=== PATIENT | female | born 1970 ===

== ENCOUNTER 2018-05-25 17:46 | Emergency (ER) | payer MEDICAID ==
[2018-05-25 17:54] VITALS: BP 148/84; PULSE 92; RESP 18; TEMP 98.7; O2SAT 100
--- NOTE | 2018-05-25 18:10 | ED PDOC ---
Lower Extremity Pain/Injury Time Seen by Provider: 05/25/18 17:55 Chief Complaint (Nursing): Lower Extremity Problem/Injury Chief Complaint (Provider): Left ankle injury History Per: Patient History/Exam Limitations: no limitations Onset/Duration Of Symptoms: Days (1x week), Persistent Current Symptoms Are (Timing): Still Present Severity: Moderate Additional Complaint(s): 47 year old female with no pertinent past medical history presents to the ED with complaints of left ankle pain status post an injury that occurred 1x week ago. Patient states she struck her left ankle against her bed 1x week ago and and the pain has worsened since. Patient reports pain with ambulation and swelling. Patient reports taking motrin 4x hours prior to arrival with no relief. PMD: None provided - Ankle/Foot Description Of Injury: Struck Against Object (bed, 1x week ago) Past Medical History Reviewed: Historical Data, Nursing Documentation, Vital Signs Vital Signs: Last Vital Signs Temp 98.7 F 05/25/18 17:53 Pulse 92 H 05/25/18 17:53 Resp 18 05/25/18 17:53 BP 148/84 05/25/18 17:53 Pulse Ox 100 05/25/18 17:53 - Medical History PMH: No Chronic Diseases - Surgical History Surgical History: Cholecystectomy Other surgeries: tubal ligation, bunionectomy - Family History Family History: States: No Known Family Hx - Social History Alcohol: None Drugs: Denies - Home Medications Home Medications: Ambulatory Orders Medication Instructions Recorded Naproxen 375 mg PO Q8 PRN #21 tab 09/17/15 Polymyxin/Trimethoprim Sulfate 100 drop OD BID #1 bottle 10/07/15 [Polytrim Ophth Soln] Ibuprofen [Motrin] 600 mg PO Q8 PRN #21 tab 05/25/18 - Allergies Allergies/Adverse Reactions: Allergies Allergy/AdvReac Type Severity Reaction Status Date / Time No Known Allergies Allergy Verified 10/07/15 10:17 Review of Systems ROS Statement: Except As Marked, All Systems Reviewed And Found Negative Musculoskeletal: Positive for: Other (left ankle pain and swelling) Physical Exam - Reviewed Nursing Documentation Reviewed: Yes Vital Signs Reviewed: Yes - Physical Exam Appears: Positive for: Well, Non-toxic, No Acute Distress Head Exam: Positive for: ATRAUMATIC, NORMOCEPHALIC Skin: Positive for: Normal Color Extremity: Positive for: Tenderness (tenderness to touch of medial aspect of left malleolus. no tenderness to knee and foot.) Neurologic/Psych: Positive for: Alert, Oriented (3x) - ECG O2 Sat by Pulse Oximetry: 100 (RA) Pulse Ox Interpretation: Normal - Progress ED Course And Treament: XRY OF ANKLE: IMPRESSION: No acute fracture or dislocation. PLACED IN AIR CAST/ [place] WRAP GIVEN CRUTCHES IN ED Medical Decision Making Medical Decision Makin:55 Initial impression: 47 year old female with left ankle pain Initial plan: * XRay ankle left 3 views * reevaluation Scribe Attestation: Documented by Erica Cha, acting as a scribe for Dayday Lance PA-C. Provider Scribe Attestation: All medical record entries made by the Scribe were at my direction and personally dictated by me. I have reviewed the chart and agree that the record accurately reflects my personal performance of the history, physical exam, medical decision making, and the department course for this patient. I have also personally directed, reviewed, and agree with the discharge instructions and disposition. Disposition - Clinical Impression Clinical Impression: Ankle pain - Patient ED Disposition Is Patient to be Admitted: No - Disposition Referrals: Podiatry Clinic [Outside] Disposition: Routine/Home Disposition Time: 18:49 Condition: FAIR Prescriptions: Ibuprofen [Motrin] 600 mg PO Q8 PRN #21 tab PRN Reason: Pain, Moderate (4-7) Instructions: Contusion (DC) Forms: [facility] ED School/Work Excuse
--- NOTE | 2018-05-25 18:39 | RAD ---
Date of service: 05/25/2018 PROCEDURE: Left Ankle Radiographs. HISTORY: Injury COMPARISON: None FINDINGS: BONES: Bone alignment and mineralization are normal. There is no acute displaced fracture or bone destruction. There is an accessory ossification center inferior to the medial malleolus. JOINTS: Normal. Ankle mortise maintained. Talar dome intact SOFT TISSUES: There is mild medial soft tissue swelling. OTHER FINDINGS: None. IMPRESSION: No acute fracture or dislocation.
== END 2018-05-25 19:19 | disposition home or self-care (01) ==
LOC: H.ER 17:46
DX: M25.572 Pain in left ankle and joints of left foot (principal)

== ENCOUNTER 2018-07-26 17:37 | Emergency (ER) | payer MEDICAID ==
[2018-07-26 17:54] VITALS: BP 155/89; PULSE 96; RESP 16; TEMP 98.5; O2SAT 98
--- NOTE | 2018-07-26 20:00 | ED PDOC ---
HPI: Eye Injury/Pain Time Seen by Provider: 07/26/18 18:34 Chief Complaint (Nursing): Eye Problem Chief Complaint (Provider): Left eye irritation History Per: Patient History/Exam Limitations: no limitations Onset/Duration Of Symptoms: Days Current Symptoms Are (Timing): Still Present Associated Symptoms: Discharge From Eye. denies: Decreased Vision Additional Complaint(s): 47yo female, no past medical history, comes to ER reporting left eye irritation x 3 days with associated redness and yellow crusting in the morning. Patient reports the eye has become increasingly red as well. She denies any sore throat, ear pain, nasal congestion, fever, chills or night sweats. She has been taking Visine with no relief. Past Medical History Reviewed: Historical Data, Nursing Documentation, Vital Signs Vital Signs: Last Vital Signs Temp 98.5 F 07/26/18 17:54 Pulse 96 H 07/26/18 17:54 Resp 16 07/26/18 17:54 BP 155/89 H 07/26/18 17:54 Pulse Ox 98 07/26/18 17:54 - Medical History PMH: Denies: Diabetes, HTN, Hyperlipidemia - Surgical History Surgical History: Cholecystectomy - Family History Family History: States: Unknown Family Hx - Social History Current smoker - smoking cessation education provided: Yes - Home Medications Home Medications: Ambulatory Orders Medication Instructions Recorded RX: Naproxen 375 mg PO Q8 PRN #21 tab 09/17/15 Polymyxin/Trimethoprim Sulfate 100 drop OD BID #1 bottle 10/07/15 [Polytrim Ophth Soln] Ibuprofen [Motrin] 600 mg PO Q8 PRN #21 tab 05/25/18 RX: Sulfacetamide Sodium [Bleph 1 drop OU Q6 7 Days bottle 07/26/18 10% Eye Drops] - Allergies Allergies/Adverse Reactions: Allergies Allergy/AdvReac Type Severity Reaction Status Date / Time No Known Allergies Allergy Verified 07/26/18 17:52 Review of Systems ROS Statement: Except As Marked, All Systems Reviewed And Found Negative Eyes: Positive for: Redness. Negative for: Vision Change, Conjunctivae Inflammation ENT: Negative for: Ear Pain, Throat Pain Physical Exam - Reviewed Nursing Documentation Reviewed: Yes Vital Signs Reviewed: Yes - Physical Exam Appears: Positive for: Non-toxic, No Acute Distress Head Exam: Positive for: ATRAUMATIC, NORMAL INSPECTION, NORMOCEPHALIC Skin: Positive for: Normal Color Eye Exam: Positive for: EOMI, PERRL, Conjunctival injection (bilaterally, left > right), Other (watery, tearful discharge) Neck: Positive for: Normal, Supple Cardiovascular/Chest: Positive for: Regular Rate, Rhythm Neurologic/Psych: Positive for: Alert, Oriented - ECG O2 Sat by Pulse Oximetry: 98 (RA) Pulse Ox Interpretation: Normal Medical Decision Making Medical Decision Making: Impression: Conjunctivitis Plan: -- Patient given prescription for antibiotic ophthalmic drops Patient stable for discharge home with return instructions given. Scribe Attestation: Documented by Rosalina Ring acting as a scribe for SHERIF Paige. Provider Attestation: All medical record entries made by the Scribe were at my direction and personally dictated by me. I have reviewed the chart and agree that the record accurately reflects my personal performance of the history, physical exam, medical decision making, and the department course for this patient. I have also personally directed, reviewed, and agree with the discharge instructions and disposition. Disposition - Clinical Impression Clinical Impression: Conjunctivitis - Patient ED Disposition Is Patient to be Admitted: No - Disposition Disposition: Routine/Home Disposition Time: 19:50 Condition: STABLE Additional Instructions: F/u with your primary care doctor or eye doctor for further evaluation of eye redness if it does not resolve with antibiotic drops. Complete course of antibiotic drops as prescribed. Prescriptions: RX: Sulfacetamide Sodium [Bleph 10% Eye Drops] 1 drop OU Q6 7 Days bottle Instructions: Conjunctivitis ([place]) (DC) Forms: [employer] (Polish) Print Language: OCCITAN
== END 2018-07-26 19:51 | disposition home or self-care (01) ==
LOC: H.ER 17:37
DX: H10.9 Unspecified conjunctivitis (principal)